=== PATIENT | female | born 1950 | race Caucasian/White ===

== ENCOUNTER 2022-01-22 05:45 | Emergency (ER) | payer MEDICARE, BC ==
[~2022-01-22] VITALS: Ht 157.5 cm; Wt 79.4 kg
--- NOTE | 2022-01-22 06:03 | NUR ---
TO ER BED 2. BIBS C/O MID EPIGASTRIC PAIN, NAUSEA, AND BILATERAL HAND NUMBNESS SINCE 3 AM. PT STATES "CHECKED BP AND IT WAS ELEVATED", TOOK AMLODIPINE 1 HOUR AGO. CONNECTED TO MONITOR. AWAITING MD RICHARDSON
[2022-01-22] MEDS ORDERED: ONDANSETRON HCL/PF 4 MG/2 ML VIAL ONE (06:12)
[2022-01-22] MEDS ORDERED: FAMOTIDINE/PF INJ 20 MG/2 ML VIAL IV ONE ×2 (06:12→06:30)
[2022-01-22] MEDS ORDERED: ONDANSETRON HCL/PF 4 MG/2 ML VIAL IVP ONE (06:30)
--- NOTE | 2022-01-22 06:35 | NUR ---
LAB AT BEDSIDE
--- NOTE | 2022-01-22 06:35 | NUR ---
IV LINE ESTABLISHED, L HAND 18G
--- NOTE | 2022-01-22 06:36 | NUR ---
URINE SAMPLE COLLECTED AND SENT TO LAB
--- NOTE | 2022-01-22 06:45 | NUR ---
XRAY AT BEDSIDE
[2022-01-22 07:09] LABS: CALCIUM, SERUM 8.9 mg/dL (8.5-10.1); CARBON DIOXIDE 30 mmol/L (21-32); CHLORIDE 104 mmol/L (98-107); CREATININE 1.2 mg/dL (0.6-1.3); GLUCOSE 106 mg/dL (74-106); POTASSIUM 4.5 mmol/L (3.5-5.1); SODIUM SERUM 141 mmol/L (136-145); UREA NITROGEN, BLOOD 20 mg/dL (7-18)
[2022-01-22 07:09] LABS: BASOPHILS # (AUTO) 0.1 K/uL (0.0-0.2); BASOPHILS % (AUTO) 0.7 % (0.0-2.0); EOSINOPHILS % (AUTO) 2.6 % (0.0-6.0); HEMATOCRIT 38 % (33-45); HEMOGLOBIN 12.8 g/dL (11.5-14.8); LYMPHOCYTES # (AUTO) 1.8 K/uL (0.8-4.8); LYMPHOCYTES % (AUTO) 15.2 % (20.0-44.0); MEAN CORPUSCULAR HGB CONC 34 g/dl (31.0-36.0); MEAN CORPUSCULAR VOLUME 87 fL (82-100); MONOCYTES # (AUTO) 0.8 K/uL (0.1-1.30); MONOCYTES % (AUTO) 7.1 % (2.0-12.0); NEUTROPHILS # (AUTO) 8.8 K/uL (1.8-8.9); NEUTROPHILS % (AUTO) 74.4 % (43.0-81.0); PLATELET COUNT (AUTO) 308 K/uL (150-450); WHITE BLOOD COUNT (AUTO) 11.8 K/uL (4.3-11.0)
[2022-01-22 07:15] LABS: ALANINE AMINOTRANSFERASE 25 U/L (12-78); ALBUMIN 3.4 g/dL (3.4-5.0); ALKALINE PHOSPHATASE 76 U/L (46-116); ASPARTATE AMINOTRANSFERASE 25 U/L (15-37); BILIRUBIN,DIRECT 0.1 mg/dL (0.0-0.2); BILIRUBIN,TOTAL 0.2 mg/dL (0.2-1.0); LIPASE 126 U/L (73-393); TOTAL PROTEIN, SERUM 7.1 g/dL (6.4-8.2)
[2022-01-22] MEDS ORDERED: LIDOCAINE VISCOUS 2% UD 15 ML UDC MM ONE (08:00)
[2022-01-22] MEDS ORDERED: MAG HYDROX/AL HYDROX/SIMETH 30 ML UDC PO ONE (08:00)
[2022-01-22] MEDS ORDERED: LIDOCAINE VISCOUS 2% UD 15 ML UDC ONE (08:06)
[2022-01-22] MEDS ORDERED: MAG HYDROX/AL HYDROX/SIMETH 30 ML UDC ONE (08:06)
[2022-01-22] MEDS ORDERED: ONDA4TAB5 PO (08:57)
[2022-01-22] MEDS ORDERED: FAMO-131 PO (08:57)
[2022-01-22 09:08] VITALS: BP 132/79
--- NOTE | 2022-01-22 09:08 | NUR ---
Patient discharged to home in stable condition. Written and verbal after care instructions given. Patient verbalizes understanding of instruction. IV removed. Catheter intact and site benign. Pressure and 4x4 applied to site. No bleeding noted.
== END 2022-01-22 09:09 | disposition home or self-care (01) ==
LOC: ER 05:56
DX: R10.10 Upper abdominal pain, unspecified (principal); R11.0 Nausea; R20.2 Paresthesia of skin; I10 Essential (primary) hypertension; Z88.8 Allergy status to other drugs, medicaments and biological substances
CPT/HCPCS: 36415; 71045; 74176; 80048; 80076; 83690; 84484; 85025; 93005; 96374; 96375; 99285; J2405; J3490